=== PATIENT | female | born 1965 | race Caucasian/White ===

== ENCOUNTER → 2023-06-07 06:45 | Outpatient (REF) | payer OTHER, SELFPAY | LOC: HWRAD 06:45 | PROVIDERS: ATTENDING PHYSICIAN Otolaryngology; FAMILY PHYSICIAN Internal Medicine; REFERRING PHYSICIAN Internal Medicine Cardiovascular Disease | DX: H81.4 Vertigo of central origin (principal); R22.1 Localized swelling, mass and lump, neck | CPT/HCPCS: 76536 ==